=== PATIENT | female | born 1935 | race Caucasian/White ===

== ENCOUNTER 2018-07-02 15:27 | Emergency (ER) | payer MEDICARE, OTHER ==
--- NOTE | 2018-07-02 16:27 | EDM.PDOC ---
ED HPI GENERAL MEDICAL PROBLEM - General Chief Complaint: Genitourinary Problem Stated Complaint: BLADDER INFECTION Time Seen by Provider: 07/02/18 15:35 Source of Information: Reports: Patient, RN Notes Reviewed History Limitations: Reports: No Limitations - History of Present Illness INITIAL COMMENTS - FREE TEXT/NARRATIVE: The patient states that she was seen by Guerline Tovar in the clinic on 06/21/2018, for cold-like symptoms including a sore throat. Workup included a CBC, urinalysis, chest x-ray, rapid strep test, and an influenza swab , all of which returned completely normal. The patient was prescribed a Z-Alfonso, which she took as prescribed, however, she told the provider that whenever she is given an antibiotic, she often gets a yeast infection, therefore she was prescribed 2 tablets of an additional medicine (likely Diflucan). She states that she took one of those tablets on 06/21/2018, and the second tablet on or about 06/24/2018. The patient states that she was doing well up until about 2 days ago, when she started to develop mild dysuria, urinary frequency, and urinary urgency. Her symptoms became much worse yesterday, therefore she started taking Pyridium left over from a previous prescription. She states that the Pyridium helps with her symptoms, however, her symptoms return once the Pyridium wears off. She denies any recent fever or chills. No recent nausea or vomiting. No recent abdominal pain, flank pain, or low back pain. The patient's PCP is Dr. Demi Dobson. Bladder Pain Score (Numeric/FACES): 4 - Related Data Allergies Allergy/AdvReac Type Severity Reaction Status Date / Time Sulfa (Sulfonamide Allergy Swelling Verified 07/02/18 15:36 Antibiotics) Home Meds: Home Meds Cephalexin [Keflex] 1 tab PO Q12H #13 capsule 07/02/18 [Rx] Levothyroxine [Synthroid] 88 mcg PO DAILY 07/02/18 [History] Losartan Potassium 25 mg PO DAILY 07/02/18 [History] Phenytoin Sodium Extended [Dilantin] 100 mg PO BID 07/02/18 [History] Rosuvastatin [Crestor] 10 mg PO BEDTIME 07/02/18 [History] Past Medical History HEENT History: Reports: Cataract, Glaucoma Cardiovascular History: Reports: High Cholesterol, Hypertension Gastrointestinal History: Reports: Colon Polyp, GERD Genitourinary History: Reports: Renal Calculus, Urinary Incontinence (stress iincontinence) Musculoskeletal History: Reports: Arthritis, Back Pain, Chronic, Fracture (left elbow), Gout (suspected, not tested) Neurological History: Reports: Seizure Psychiatric History: Reports: Anxiety, Depression Endocrine/Metabolic History: Reports: Hypothyroidism Oncologic (Cancer) History: Reports: Lymphoma (Mycosis fungoides, in remission) - Past Surgical History GI Surgical History: Reports: Colonoscopy, Other (See Below) (Hemorrhoidectomy) Oncologic Surgical History: Reports: Other (See Below) (Left neck lymph node excision) Social & Family History - Tobacco Use Smoking Status *Q: Current Every Day Smoker Years of Tobacco use: 69 Packs/Tins Daily: 1 Packs/Tins Daily Comment: Down from 1.5 ppd - Caffeine Use Caffeine Use: Reports: Coffee, Soda - Alcohol Use Alcohol Use History: No - Recreational Drug Use Recreational Drug Use: No - Living Situation & Occupation Living situation: Reports: , with Family (Sister) Occupation: Retired ED ROS GENERAL - Review of Systems Review Of Systems: ROS reveals no pertinent complaints other than HPI. ED EXAM, RENAL/ - Physical Exam Exam: See Below Exam Limited By: No Limitations General Appearance: Alert, WD/WN, No Apparent Distress Eye Exam: Bilateral Eye: EOMI, Normal Inspection Ears: Normal External Exam, Hearing Grossly Normal Nose: Normal Inspection Throat/Mouth: Normal Inspection, Normal Lips, Normal Voice, No Airway Compromise Head: Atraumatic, Normocephalic Neck: Normal Inspection, Full Range of Motion Respiratory/Chest: No Respiratory Distress, Lungs Clear, Normal Breath Sounds, No Accessory Muscle Use Cardiovascular: Normal Peripheral Pulses, Regular Rate, Rhythm, No Edema, No Gallop, No JVD, No Murmur, No Rub GI/Abdominal: Normal Bowel Sounds, Soft, Non-Tender (including suprapubically), No Organomegaly, No Distention, No Abnormal Bruit, No Mass (Female) Exam: Deferred Rectal (Female) Exam: Deferred Back Exam: Normal Inspection, Full Range of Motion. No: CVA Tenderness (L), CVA Tenderness (R) Extremities: Normal Inspection, Normal Range of Motion, No Pedal Edema, Normal Capillary Refill Neurological: Alert, Oriented, Normal Cognition, No Motor/Sensory Deficits Psychiatric: Normal Affect Skin Exam: Warm, Dry, Intact, Normal Color, No Rash Course - Vital Signs Last Recorded V/S: Last Vital Signs Temp 36.7 C 07/02/18 15:43 Pulse 73 07/02/18 15:43 Resp 20 07/02/18 15:43 BP 126/75 07/02/18 15:43 Pulse Ox 95 07/02/18 15:43 - Orders/Labs/Meds Orders: Active Orders 24 hr Category Date Time Status CULTURE URINE [RM] Stat Lab 07/02/18 16:29 Ordered cephALEXin [Keflex] Med 07/02/18 16:37 Once 500 mg PO ONETIME ONE Labs: Laboratory Tests 07/02/18 Range/Units 15:55 Urine Color [place] H (Yellow) Urine Appearance Slt cloudy H (Clear) Urine pH 6.0 (5.0-8.0) Ur Specific [place] 1.020 (1.005-1.030) Urine Protein 1+ H (Negative) Urine Glucose (UA) Trace H (Negative) Urine Ketones Negative (Negative) Urine Occult Blood 1+ H (Negative) Urine Nitrite Positive H (Negative) Urine Bilirubin Negative (Negative) Urine Urobilinogen 1.0 (0.2-1.0) Ur Leukocyte Esterase 3+ H (Negative) Urine RBC 10-20 H (0-5) /hpf Urine WBC 50-75 H (0-5) /hpf Urine WBC Clumps Few (NOT SEEN) /hpf Ur Epithelial Cells 5-10 H (0-5) /hpf Urine Bacteria Moderate H (FEW) /hpf Urine Mucus Few (FEW) /hpf - Re-Assessments/Exams Free Text/Narrative Re-Assessment/Exam: 07/02/18 16:37 The patient's urinalysis is consistent with a UTI. I have ordered a urine culture, and will start the patient on Keflex 500 mg BID x 7 days. 07/02/18 16:46 The patient requested additional Pyridium. I informed the patient that while Pyridium can help with UTI symptoms, it is not good for the bladder, therefore one should only take a total of about 6 doses. The patient states that she has already taken 3 or 4 doses of her pre-existing Pyridium. I am recommending that the patient take additional 2 or 3 doses of [id number] Azo. The patient states that she has an appointment to see her PCP this coming 07/04/2018. The urine culture results can be reviewed at that time. Departure - Departure Time of Disposition: 16:47 Disposition: Home, Self-Care 01 Condition: Good Clinical Impression: UTI (urinary tract infection) - Discharge Information *PRESCRIPTION DRUG MONITORING PROGRAM REVIEWED*: Not Applicable *COPY OF PRESCRIPTION DRUG MONITORING REPORT IN PATIENT JOSE: Not Applicable Referrals: Demi Dobson MD [Primary Care Provider] - Forms: ED Department Discharge Additional Instructions: You were seen in the emergency room for painful urination, along with urinary frequency and urgency. Workup in the ER included a urinalysis, which confirmed that you have a urinary tract infection. A sample of your urine has been sent for culture. You have been started on the antibiotic Keflex. A prescription for Keflex has been sent to the [facility], located just south and across the [address] from [facility]. Take one tablet of Keflex every 12 hours, starting tomorrow morning, 07/03/2018, as prescribed. Finish the entire prescription unless told otherwise by Dr. Dobson. In addition to Keflex, you may also take a total of 3 additional doses of over- the-counter Azo. As you are aware, Azo will turn your urine orange - this is normal. Stay adequately hydrated. Follow-up with your PCP, Dr. Demi Dobson, at your previously scheduled appointment this coming 07/04/2018. At that visit, have Dr. Dobson check your urine culture results, to make sure that you are on the correct antibiotic. If any other problems, please do not hesitate to return to the ER. - My Orders Last 24 Hours: My Active Orders 07/02/18 16:29 CULTURE URINE [RM] Stat 07/02/18 16:37 cephALEXin [Keflex] 500 mg PO ONETIME ONE - Assessment/Plan Last 24 Hours: My Active Orders 07/02/18 16:29 CULTURE URINE [RM] Stat 07/02/18 16:37 cephALEXin [Keflex] 500 mg PO ONETIME ONE
[2018-07-02] MEDS ORDERED: Cephalexin 500 MG Cap PO ONE (16:37)
== END 2018-07-02 17:05 | disposition home or self-care (01) ==
LOC: JD.ED 15:27
DX: N39.0 Urinary tract infection, site not specified (principal); B96.20 Unspecified Escherichia coli [E. coli] as the cause of diseases classified elsewhere; E78.00 Pure hypercholesterolemia, unspecified; I10 Essential (primary) hypertension; F17.210 Nicotine dependence, cigarettes, uncomplicated; Z88.2 Allergy status to sulfonamides; Z79.899 Other long term (current) drug therapy
CPT/HCPCS: 81001; 87086; 87088; 87186; 99283; A9270

== ENCOUNTER 2018-12-22 16:25 | Emergency (ER) | payer MEDICARE, OTHER ==
--- NOTE | 2018-12-22 16:59 | EDM.PDOC ---
ED HPI GENERAL MEDICAL PROBLEM - General Chief Complaint: Genitourinary Problem Stated Complaint: UTI Time Seen by Provider: 12/22/18 16:56 - History of Present Illness INITIAL COMMENTS - FREE TEXT/NARRATIVE: 83-year-old female presents emergency room with burning and frequency with urination. Patient is convinced she has a urinary tract infection she's had multiple urinary tract infections. She's had intermittent symptoms for the last week or so getting more consistent over the last several days. She denies any fevers or chills she's tender associated back pain with this. No nausea no vomiting. Bladder Pain Score (Numeric/FACES): 0 - Related Data Allergies Allergy/AdvReac Type Severity Reaction Status Date / Time Sulfa (Sulfonamide Allergy Swelling Verified 07/02/18 15:36 Antibiotics) Home Meds: Home Meds Levothyroxine [Synthroid] 88 mcg PO DAILY 07/02/18 [History] Losartan Potassium 25 mg PO DAILY 07/02/18 [History] Phenytoin Sodium Extended [Dilantin] 100 mg PO BID 07/02/18 [History] Rosuvastatin [Crestor] 10 mg PO BEDTIME 07/02/18 [History] Nitrofurantoin Monohyd/M-Cryst [Macrobid 100 mg Capsule] 100 mg PO Q12H #14 capsule 12/22/18 [Rx] Past Medical History HEENT History: Reports: Cataract, Glaucoma Cardiovascular History: Reports: High Cholesterol, Hypertension Gastrointestinal History: Reports: Colon Polyp, GERD Genitourinary History: Reports: Renal Calculus, Urinary Incontinence Musculoskeletal History: Reports: Arthritis, Back Pain, Chronic, Fracture, Gout Other Musculoskeletal History: ruptured disc and gets injections Neurological History: Reports: Seizure Psychiatric History: Reports: Anxiety, Depression Endocrine/Metabolic History: Reports: Hypothyroidism Oncologic (Cancer) History: Reports: 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 - Past Surgical History GI Surgical History: Reports: Colonoscopy, Other (See Below) Oncologic Surgical History: Reports: Other (See Below) Social & Family History - Tobacco Use Smoking Status *Q: Current Every Day Smoker Years of Tobacco use: 50 Packs/Tins Daily: 1 - Caffeine Use Caffeine Use: Reports: Coffee - Recreational Drug Use Recreational Drug Use: No - Living Situation & Occupation Living situation: Reports: , with Family (Sister) Occupation: Retired ED ROS GENERAL - Review of Systems Review Of Systems: See Below Constitutional: Reports: No Symptoms Respiratory: Reports: No Symptoms, Cough GI/Abdominal: Reports: Abdominal Pain (She has some mild discomfort in the lower abdomen) : Reports: Dysuria, Frequency. Denies: Flank Pain Skin: Reports: No Symptoms Neurological: Reports: No Symptoms Psychiatric: Reports: No Symptoms ED EXAM, GI/ABD - Physical Exam Exam: See Below Exam Limited By: No Limitations General Appearance: Alert, No Apparent Distress Head: Atraumatic, Normocephalic Neck: Normal Inspection, Supple, Non-Tender, Full Range of Motion Respiratory/Chest: No Respiratory Distress, Lungs Clear, Normal Breath Sounds Cardiovascular: Regular Rate, Rhythm, No Edema, No Murmur GI/Abdominal Exam: Normal Bowel Sounds, Soft, Non-Tender Back Exam: Normal Inspection. No: CVA Tenderness (L), CVA Tenderness (R) Extremities: Normal Inspection Neurological: Alert, Oriented, Normal Cognition Course - Vital Signs Last Recorded V/S: Last Vital Signs Temp 36.1 C 12/22/18 16:34 Pulse 79 12/22/18 16:34 Resp 20 12/22/18 16:34 BP 144/75 H 12/22/18 16:34 Pulse Ox 94 L 12/22/18 16:34 - Orders/Labs/Meds Orders: Active Orders 24 hr Category Date Time Status CULTURE URINE [RM] Stat Lab 12/22/18 17:15 Received Labs: Laboratory Tests 12/22/18 Range/Units 17:15 Urine Color Dark yellow (Yellow) Urine Appearance Cloudy H (Clear) Urine pH 7.0 (5.0-8.0) Ur Specific [place] 1.020 (1.005-1.030) Urine Protein 1+ H (Negative) Urine Glucose (UA) Trace H (Negative) Urine Ketones Trace H (Negative) Urine Occult Blood Trace-intact H (Negative) Urine Nitrite Positive H (Negative) Urine Bilirubin Negative (Negative) Urine Urobilinogen 1.0 (0.2-1.0) Ur Leukocyte Esterase 2+ H (Negative) Urine RBC 5-10 H (0-5) /hpf Urine WBC 50-75 H (0-5) /hpf Ur Squamous Epith Cells 0-5 (0-5) /hpf Urine Bacteria Moderate H (FEW) /hpf Hyaline Casts 0-5 (0-5) /lpf Urine Mucus Few (FEW) /hpf - Re-Assessments/Exams Free Text/Narrative Re-Assessment/Exam: 12/22/18 18:02 Patient's urinalysis is strongly suggestive of UTI patient will be started on Macrobid Departure - Departure Time of Disposition: 17:50 Disposition: Home, Self-Care 01 Clinical Impression: UTI (urinary tract infection), UTI, Urinary tract infectious disease - Discharge Information Prescriptions: Nitrofurantoin Monohyd/M-Cryst [Macrobid 100 mg Capsule] 100 mg PO Q12H #14 capsule Referrals: Demi Dobson MD [Primary Care Provider] - Forms: ED Department Discharge Additional Instructions: Return to the emergency room with any questions or problems. Take the antibiotic as directed. Follow-up with your regular health care provider 3 days after finishing the antibiotics. - My Orders Last 24 Hours: My Active Orders 12/22/18 17:15 CULTURE URINE [RM] Stat - Assessment/Plan Last 24 Hours: My Active Orders 12/22/18 17:15 CULTURE URINE [RM] Stat
== END 2018-12-22 18:04 | disposition home or self-care (01) ==
LOC: JD.ED 16:25
DX: N39.0 Urinary tract infection, site not specified (principal); I10 Essential (primary) hypertension; E78.00 Pure hypercholesterolemia, unspecified; E03.9 Hypothyroidism, unspecified; F17.200 Nicotine dependence, unspecified, uncomplicated; Z88.2 Allergy status to sulfonamides; Z79.899 Other long term (current) drug therapy; Z79.890 Hormone replacement therapy
CPT/HCPCS: 81001; 87086; 87088; 87186; 99283

== ENCOUNTER 2019-03-12 18:28 | Emergency (ER) | payer MEDICARE, OTHER ==
[2019-03-12] MEDS ORDERED: Sodium Chloride 0.9% 10 ML Syringe FLUSH PRN (18:52)
[2019-03-12] MEDS ORDERED: LORazepam 2 MG/ML SDV IVPUSH ONE (18:54)
[2019-03-12] MEDS ORDERED: Ondansetron 4 MG/2 ML SDV IVPUSH ONE (18:54)
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
--- NOTE | 2019-03-12 20:41 | CR ---
Chest: 2 views of the chest are obtained. Comparison: Prior chest x-ray of 06/21/18. Heart is felt to be slightly enlarged. Tortuous thoracic aorta is seen. Mild upper lobe pulmonary vascular redistribution is noted. Mild scoliosis is noted within the spine with mild degenerative change and mild kyphosis. Impression: 1. Possible early CHF. 2. Other findings which are believed to be incidental. Diagnostic code #3 This report was dictated in [place] Standard Time
== END 2019-03-12 21:42 | disposition home or self-care (01) ==
LOC: JD.ED 18:28
DX: F41.9 Anxiety disorder, unspecified (principal); I10 Essential (primary) hypertension; E03.9 Hypothyroidism, unspecified; E78.00 Pure hypercholesterolemia, unspecified; F17.210 Nicotine dependence, cigarettes, uncomplicated; Z88.2 Allergy status to sulfonamides; Z79.890 Hormone replacement therapy; Z79.899 Other long term (current) drug therapy
CPT/HCPCS: 36415; 71046; 80053; 80185; 81003; 84443; 84484; 85025; 93005; 96374; 96375; 99285; G0480; J2060; J2405; 93010; 99283

== ENCOUNTER 2019-04-30 14:18 | Emergency (ER) | payer MEDICARE, OTHER ==
--- NOTE | 2019-04-30 15:53 | EDM.PDOCBH ---
ED HPI GENERAL MEDICAL PROBLEM - General Chief Complaint: Behavioral/Psych Stated Complaint: PANIC ATTACK Time Seen by Provider: 04/30/19 14:35 Source of Information: Reports: Patient History Limitations: Reports: No Limitations - History of Present Illness INITIAL COMMENTS - FREE TEXT/NARRATIVE: Patient is an 83-year-old female who presents with complaints of anxiety and panic attacks. She states that numerous times throughout the day she will get feelings of increased anxiety like "something is wrong with her brain ". She states that these started occurring back in January and have getting progressively worse. At that time she thought that they have may have been some auras associated with her seizure disorder. She was taking additional doses of Dilantin and ended up with toxic levels of Dilantin. She has been taking her normal dose of Dilantin 300 mg twice daily since that time. She did see her neurologist at the beginning of the month and it was confirmed that these are not auras but rather anxiety. Patient does have a son with Asperger' s who is mean to her and causes her increased anxiety. He will call her on the phone and see that he is going to kill himself. She recently saw her primary care provider, Dr. Dobson, on 12 April. Lab work was done at that time and was found to be normal. Her Zoloft dose was increased to 50 mg daily on April 24. She is also taking trazodone 50 mg at bedtime. She states that she is able to fall asleep, however she only stays asleep for about 2 hours and then cannot go back to sleep after that. - Related Data Allergies Allergy/AdvReac Type Severity Reaction Status Date / Time Sulfa (Sulfonamide Allergy Swelling Verified 03/12/19 18:44 Antibiotics) Home Meds: Home Meds Levothyroxine [Synthroid] 88 mcg PO DAILY 07/02/18 [History] Losartan Potassium 25 mg PO DAILY 07/02/18 [History] Phenytoin Sodium Extended [Dilantin] 300 mg PO BID 07/02/18 [History] Rosuvastatin [Crestor] 10 mg PO BEDTIME 07/02/18 [History] Aspirin 81 mg PO DAILY 04/30/19 [History] B12/Levomefolate Calcium/B-6 [Folbic Rf Tablet] 1 mg PO DAILY 04/30/19 [History] Iron,Carbonyl/Ascorbic Acid [Iron 100-Vitamin C Tablet] 1 mg PO DAILY 04/30/19 [ History] LORazepam [Ativan] 0.5 mg PO BID PRN #15 tablet 04/30/19 [Rx] Mirtazapine [Remeron] 15 mg PO BEDTIME #30 tab 04/30/19 [Rx] traZODone HCl [Trazodone HCl] 50 mg PO BEDTIME 04/30/19 [History] Past Medical History HEENT History: Reports: Cataract, Glaucoma Cardiovascular History: Reports: High Cholesterol, Hypertension Respiratory History: Reports: None Gastrointestinal History: Reports: Colon Polyp, GERD Genitourinary History: Reports: Renal Calculus, Urinary Incontinence 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: Musculoskeletal History: Reports: Arthritis, Back Pain, Chronic, Fracture, Gout Other Musculoskeletal History: ruptured disc and gets injections Neurological History: Reports: Seizure Psychiatric History: Reports: Anxiety, Depression Endocrine/Metabolic History: Reports: Hypothyroidism Hematologic History: Reports: None Immunologic History: Reports: None Oncologic (Cancer) History: Reports: 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 Dermatologic History: Reports: None - Infectious Disease History Infectious Disease History: Reports: None - Past Surgical History GI Surgical History: Reports: Colonoscopy, Other (See Below) Oncologic Surgical History: Reports: Other (See Below) Social & Family History - Tobacco Use Smoking Status *Q: Current Every Day Smoker Years of Tobacco use: 60 Packs/Tins Daily: 1 - Caffeine Use Caffeine Use: Reports: Coffee - Recreational Drug Use Recreational Drug Use: No - Living Situation & Occupation Living situation: Reports: , with Family (Sister) Occupation: Retired ED ROS GENERAL - Review of Systems Review Of Systems: Comprehensive ROS is negative, except as noted in HPI. ED EXAM, BEHAVIORAL HEALTH - Physical Exam Exam: See Below Exam Limited By: No Limitations General Appearance: Alert, WD/WN, Mild Distress (Occasionally tearful) Respiratory/Chest: No Respiratory Distress, Lungs Clear, Normal Breath Sounds, No Accessory Muscle Use, Chest Non-Tender Cardiovascular: Normal Peripheral Pulses, Regular Rate, Rhythm, No Edema, No Gallop, No JVD, No Murmur, No Rub Neurological: Alert, Normal Mood/Affect, CN II-XII Intact, Normal Cognition, Normal Gait, Normal Reflexes, No Motor/Sensory Deficits, Oriented x 3 Psychiatric: Alert, Normal Affect, Normal Cognition, Oriented, Tearful ( Intermittently). No: Restless, Withdrawn, Homicidal Thoughts, Suicidal Plan, Suicidal Thoughts Skin Exam: Warm, Dry, Intact, Normal color, No rash COURSE, BEHAVIORAL HEALTH COMP - Course Vital Signs: Last Vital Signs Temp 98.3 F 04/30/19 14:31 Pulse 84 04/30/19 14:31 Resp 16 04/30/19 14:31 BP 140/112 H 04/30/19 14:31 Pulse Ox 100 04/30/19 14:31 Orders, Labs, Meds: Active Orders 24 hr Category Date Time Status Influenza Vaccine Charge [RC] .DISCHARGE Care 04/30/19 14:53 Active Laboratory Tests 04/30/19 04/30/19 04/30/19 Range/Units 15:50 15:50 15:50 WBC 9.11 (3.98-10.04) K/mm3 RBC 5.12 (3.98-5.22) M/mm3 Hgb 15.3 (11.2-15.7) gm/dl Hct 46.4 H (34.1-44.9) % MCV 90.6 (79.4-94.8) fl MCH 29.9 (25.6-32.2) pg MCHC 33.0 (32.2-35.5) g/dl RDW Std Deviation 61.2 H (36.4-46.3) fL Plt Count 246 (182-369) K/mm3 MPV 10.2 (9.4-12.3) fl Neut % (Auto) 72.6 H (34.0-71.1) % Lymph % (Auto) 13.2 L (19.3-51.7) % [place] % (Auto) 13.1 H (4.7-12.5) % Eos % (Auto) 0.8 (0.7-5.8) Baso % (Auto) 0.2 (0.1-1.2) % Neut # (Auto) 6.62 H (1.56-6.13) K/mm3 Lymph # (Auto) 1.20 (1.18-3.74) K/mm3 [place] # (Auto) 1.19 H (0.24-0.36) K/mm3 Eos # (Auto) 0.07 (0.04-0.36) K/mm3 Baso # (Auto) 0.02 (0.01-0.08) K/mm3 Sodium 143 (136-145) mEq/L Potassium 3.4 L (3.5-5.1) mEq/L Chloride 105 (98-107) mEq/L Carbon Dioxide 26 (21-32) mEq/L Anion Gap 15.4 H (5-15) BUN 13 (7-18) mg/dL Creatinine 0.8 (0.55-1.02) mg/dL Est Cr Clr Drug Dosing 37.60 mL/min Estimated GFR (MDRD) > 60 (>60) mL/min BUN/Creatinine Ratio 16.3 (14-18) Glucose 145 H (83-115) mg/dL Calcium 10.3 H (8.5-10.1) mg/dL Iron 62 (50-170) ug/dL Ferritin 62 (8-252) ng/ml Total Bilirubin 0.2 (0.2-1.0) mg/dL AST 18 (15-37) U/L ALT 29 (14-59) U/L Alkaline Phosphatase 89 (46-116) U/L Total Protein 6.7 (6.4-8.2) g/dl Albumin 3.9 (3.4-5.0) g/dl Globulin 2.8 gm/dL Albumin/Globulin Ratio 1.4 (1-2) Phenytoin 12.2 (10.0-20.0) ug/mL Medications Discontinued Medications Generic Name Dose Route Start Last Admin Trade Name Freq PRN Reason Stop Dose Admin Influenza Virus Vaccine 180 mcg 04/30/19 15:00 04/30/19 15:41 Fluzone High-Dose Syringe IM 04/30/19 15:01 Not Given .ONCE ONE Pain Departure - Departure Time of Disposition: 17:35 Disposition: Home, Self-Care 01 Condition: Fair Clinical Impression: Anxiety - Discharge Information *PRESCRIPTION DRUG MONITORING PROGRAM REVIEWED*: No *COPY OF PRESCRIPTION DRUG MONITORING REPORT IN PATIENT JOSE: No Prescriptions: LORazepam [Ativan] 0.5 mg PO BID PRN #15 tablet PRN Reason: Anxiety Mirtazapine [Remeron] 15 mg PO BEDTIME #30 tab Instructions: Panic Attack, [id number] Referrals: Demi Dobson MD [Primary Care Provider] - Billy Love MD [Physician] - Forms: ED Department Discharge Additional Instructions: You were seen in the emergency department today for increased anxiety and panic attacks. Blood work was completed and your iron was found to be normal. Your Dilantin levels are also normal. We consulted with Dr. Love, psychiatrist. He recommended that we stop your sertraline and trazodone as these medications are not working. He would like you to start taking mirtazapine at bedtime. He would also like you to use Ativan (lorazepam) 2 times a day as needed for anxiety or panic attacks. You do not have to take the Ativan (lorazepam) if you are not feeling anxious. These medications have been sent electronically to [facility]. Dr. Love would like you to call and schedule an appointment with him next Tuesday at his virtual psychiatry clinic. Please call first thing tomorrow morning to schedule an appointment for that date. The phone number to call is [phone]. It is also recommended that you keep your appointment on with Dr. Dobson for a follow-up. If you should should experience any worsening symptoms of concern, please not hesitate to return to the emergency department. Sepsis Event Note - Evaluation Sepsis Screening Result: No Definite Risk - Focused Exam Vital Signs: Vital Signs Temp Pulse Resp BP Pulse Ox 04/30/19 14:31 98.3 F 84 16 140/112 H 100 Date Exam was Performed: 04/30/19 Time Exam was Performed: 22:19 - My Orders Last 24 Hours: My Active Orders 04/30/19 14:53 Influenza Vaccine Charge [RC] .DISCHARGE - Assessment/Plan Last 24 Hours: My Active Orders 04/30/19 14:53 Influenza Vaccine Charge [RC] .DISCHARGE
== END 2019-04-30 18:00 | disposition home or self-care (01) ==
LOC: JD.ED 14:18
DX: F41.9 Anxiety disorder, unspecified (principal); E78.00 Pure hypercholesterolemia, unspecified; I10 Essential (primary) hypertension; F17.210 Nicotine dependence, cigarettes, uncomplicated; M19.90 Unspecified osteoarthritis, unspecified site; F32.9 Major depressive disorder, single episode, unspecified; Z88.2 Allergy status to sulfonamides
CPT/HCPCS: 36415; 80053; 80185; 82728; 83540; 85025; 99283

== ENCOUNTER 2020-03-07 15:29 | Emergency (ER) | payer MEDICARE, OTHER ==
[2020-03-07] MEDS ORDERED: Sodium Chloride 0.9% 10 ML Syringe FLUSH PRN (15:54)
--- NOTE | 2020-03-07 16:38 | EDM.PDOC ---
ED HPI GENERAL MEDICAL PROBLEM - General Chief Complaint: General Stated Complaint: WEAKNESS/FATIGUE Time Seen by Provider: 03/07/20 15:36 Source of Information: Reports: Patient, RN Notes Reviewed - History of Present Illness INITIAL COMMENTS - FREE TEXT/NARRATIVE: 84 yr old female with generalized weakness, fatigue that has been getting worse over the past 1 to 2 months. Had Ua and other labs checked at clinic just a few days ago. No chest pain or difficulty breathing. Very poor appetite. Thinks she has lost about 10 lbs over the past 2 to 3 months. Hx of being a heavy smoker and does continue to smoke. - Related Data Allergies Allergy/AdvReac Type Severity Reaction Status Date / Time Sulfa (Sulfonamide Allergy Swelling Verified 03/12/19 18:44 Antibiotics) Home Meds: Home Meds Levothyroxine [Synthroid] 88 mcg PO DAILY 07/02/18 [History] Losartan Potassium 25 mg PO DAILY 07/02/18 [History] Phenytoin Sodium Extended [Dilantin] 300 mg PO BID 07/02/18 [History] Rosuvastatin [Crestor] 10 mg PO BEDTIME 07/02/18 [History] Aspirin 81 mg PO DAILY 04/30/19 [History] B12/Levomefolate Calcium/B-6 [Folbic Rf Tablet] 1 mg PO DAILY 04/30/19 [History] Iron,Carbonyl/Ascorbic Acid [Iron 100-Vitamin C Tablet] 1 mg PO DAILY 04/30/19 [History] LORazepam [Ativan] 0.5 mg PO BID PRN #15 tablet 04/30/19 [Rx] Mirtazapine [Remeron] 15 mg PO BEDTIME #30 tab 04/30/19 [Rx] traZODone HCl [Trazodone HCl] 50 mg PO BEDTIME 04/30/19 [History] Past Medical History HEENT History: Reports: Cataract, Glaucoma Cardiovascular History: Reports: High Cholesterol, Hypertension Respiratory History: Reports: None Gastrointestinal History: Reports: Colon Polyp, GERD Genitourinary History: Reports: Renal Calculus, Urinary Incontinence, UTI, Recurrent 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: Musculoskeletal History: Reports: Arthritis, Back Pain, Chronic, Fracture, Gout Other Musculoskeletal History: ruptured disc and gets injections Neurological History: Reports: Seizure Psychiatric History: Reports: Anxiety, Depression Endocrine/Metabolic History: Reports: Hypothyroidism Hematologic History: Reports: None Immunologic History: Reports: None Oncologic (Cancer) History: Reports: 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 Dermatologic History: Reports: None - Infectious Disease History Infectious Disease History: Reports: None - Past Surgical History GI Surgical History: Reports: Colonoscopy, Other (See Below) Other GI Surgeries/Procedures: hemmoroidectomy Oncologic Surgical History: Reports: Other (See Below) Social & Family History - Tobacco Use Tobacco Use Status *Q: Current Every Day Tobacco User Years of Tobacco use: 70 Packs/Tins Daily: 1 - Caffeine Use Caffeine Use: Reports: Coffee - Recreational Drug Use Recreational Drug Use: No - Living Situation & Occupation Living situation: Reports: , with Family (Sister) Occupation: Retired ED ROS GENERAL - Review of Systems Review Of Systems: See Below Constitutional: Denies: Fever, Chills, Diaphoresis HEENT: Reports: No Symptoms Respiratory: Reports: Cough (chronic). Denies: Shortness of Breath Cardiovascular: Denies: Chest Pain Endocrine: Reports: Fatigue GI/Abdominal: Reports: Diarrhea (occasional mild), Decreased Appetite, Nausea. Denies: Abdominal Pain, Vomiting Musculoskeletal: Reports: Back Pain (chronic) Skin: Reports: No Symptoms Neurological: Denies: Numbness, Tingling, Trouble Speaking, Difficulty Walking ED EXAM, GENERAL - Physical Exam Exam: See Below General Appearance: Alert, Anxious Eye Exam: Bilateral Eye: PERRL Head: Atraumatic Neck: Supple Respiratory/Chest: No Respiratory Distress, Lungs Clear, Normal Breath Sounds. No: Rhonchi, Wheezing Cardiovascular: Regular Rate, Rhythm GI/Abdominal: Soft, Non-Tender. No: Guarding Extremities: Normal Inspection. No: Pedal Edema, Leg Pain Neurological: Alert, Oriented, No Motor/Sensory Deficits Skin Exam: Warm, Dry, Normal Color #1 Interpretation EKG Date: 03/07/20 Rhythm: NSR [place]: Normal P-Wave: Present QRS: Normal ST-T: Other (mild nonspecific t wave changes) Course - Vital Signs Last Recorded V/S: Last Vital Signs Temp 97.1 F 03/07/20 15:35 Pulse 68 03/07/20 15:35 Resp 12 03/07/20 15:35 BP 174/82 H 03/07/20 15:35 Pulse Ox 95 03/07/20 15:35 - Orders/Labs/Meds Orders: Active Orders 24 hr Category Date Time Status Chest 1V Frontal [CR] Stat Exams 03/07/20 16:38 Taken PHENYTOIN [REF] Stat Lab 03/07/20 16:00 Received Sodium Chloride 0.9% [Saline Flush] Med 03/07/20 15:54 Active 10 ml FLUSH ASDIRECTED PRN Peripheral IV Insertion Adult [OM.PC] Stat Oth 03/07/20 15:54 Ordered Medication Orders Sodium Chloride (Saline Flush) 10 ml FLUSH ASDIRECTED PRN PRN Reason: Keep Vein Open Last Admin: 03/07/20 16:04 Dose: 10 ml Documented by: MARY LOU Labs: Laboratory Tests 03/07/20 03/07/20 03/07/20 Range/Units 16:00 16:00 16:00 WBC 8.20 (3.98-10.04) K/mm3 RBC 4.72 (3.98-5.22) M/mm3 Hgb 14.6 (11.2-15.7) gm/dl Hct 44.2 (34.1-44.9) % MCV 93.6 (79.4-94.8) fl MCH 30.9 (25.6-32.2) pg MCHC 33.0 (32.2-35.5) g/dl RDW Std Deviation 45.7 (36.4-46.3) fL Plt Count 231 (182-369) K/mm3 MPV 10.3 (9.4-12.3) fl Neut % (Auto) 62.2 (34.0-71.1) % Lymph % (Auto) 22.4 (19.3-51.7) % [place] % (Auto) 13.2 H (4.7-12.5) % Eos % (Auto) 1.7 (0.7-5.8) Baso % (Auto) 0.4 (0.1-1.2) % Neut # (Auto) 5.10 (1.56-6.13) K/mm3 Lymph # (Auto) 1.84 (1.18-3.74) K/mm3 [place] # (Auto) 1.08 H (0.24-0.36) K/mm3 Eos # (Auto) 0.14 (0.04-0.36) K/mm3 Baso # (Auto) 0.03 (0.01-0.08) K/mm3 Sodium 139 (136-145) mEq/L Potassium 3.9 (3.5-5.1) mEq/L Chloride 105 (98-107) mEq/L Carbon Dioxide 29 (21-32) mEq/L Anion Gap 8.9 (5-15) BUN 9 (7-18) mg/dL Creatinine 0.8 (0.55-1.02) mg/dL Est Cr Clr Drug Dosing 38.80 mL/min Estimated GFR (MDRD) > 60 (>60) mL/min BUN/Creatinine Ratio 11.3 L (14-18) Glucose 95 (83-115) mg/dL Calcium 10.3 H (8.5-10.1) mg/dL Total Bilirubin 0.2 (0.2-1.0) mg/dL AST 16 (15-37) U/L ALT 19 (14-59) U/L Alkaline Phosphatase 112 (46-116) U/L Troponin I < 0.017 (0.00-0.056) ng/mL C-Reactive Protein 0.5 (<1.0) mg/dL Total Protein 6.7 (6.4-8.2) g/dl Albumin 3.8 (3.4-5.0) g/dl Globulin 2.9 gm/dL Albumin/Globulin Ratio 1.3 (1-2) TSH 3rd Generation 1.816 (0.358-3.74) uIU/mL Meds: Medications Generic Name Dose Route Start Last Admin Trade Name Freq PRN Reason Stop Dose Admin Sodium Chloride 10 ml 03/07/20 15:54 03/07/20 16:04 Saline Flush FLUSH 10 ml ASDIRECTED PRN Administration Keep Vein Open - Re-Assessments/Exams Free Text/Narrative Re-Assessment/Exam: 03/07/20 18:36 Labs, EKG, CXR all relatively nl including trop and tsh. Do not have an explanation for her decreased appetite, wt loss at this time. Did not recheck a urine as she just had a urine checked a few days ago, culture was neg. She became extremely anxious waiting for her labs to come back, demanding to be able to leave imediately. Somewhat inappropriate anxiety, needs to go smoke?, early dementia? Discharge isntr. as documented. Departure - Departure Time of Disposition: 17:55 Disposition: Home, Self-Care 01 Condition: Fair Clinical Impression: Anorexia - Discharge Information Instructions: Preventing Complications From Unhealthy Eating Behaviors, Adult Referrals: Demi Dobson MD [Primary Care Provider] - Forms: ED Department Discharge Additional Instructions: You may be getting too much dilantin, do not take your dilantin this evening and than cut back your dosage to 1 in the morning and 1 in the evening until results of your dilantin level come back. Dr Dobson will get all of the information from this visit. Try see Dr Dobson next week. Call Tuesday for appointment. Sepsis Event Note (ED) - Evaluation Sepsis Screening Result: No Definite Risk - Focused Exam Vital Signs: Vital Signs Temp Pulse Resp BP Pulse Ox 03/07/20 15:35 97.1 F 68 12 174/82 H 95 - My Orders Last 24 Hours: My Active Orders 03/07/20 15:54 Sodium Chloride 0.9% [Saline Flush] 10 ml FLUSH ASDIRECTED PRN Peripheral IV Insertion Adult [OM.PC] Stat 03/07/20 16:00 PHENYTOIN [REF] Stat 03/07/20 16:38 Chest 1V Frontal [CR] Stat - Assessment/Plan Last 24 Hours: My Active Orders 03/07/20 15:54 Sodium Chloride 0.9% [Saline Flush] 10 ml FLUSH ASDIRECTED PRN Peripheral IV Insertion Adult [OM.PC] Stat 03/07/20 16:00 PHENYTOIN [REF] Stat 03/07/20 16:38 Chest 1V Frontal [CR] Stat
--- NOTE | 2020-03-07 18:42 | CR ---
Chest: Portable view of the chest was obtained. Comparison: Prior chest x-ray of 03/12/19 and 06/21/18. Findings: Heart size appears within normal limits for portable technique. Tortuous thoracic aorta is seen. Lungs are clear with no acute parenchymal change. Slight scoliosis is noted within the spine. Impression: 1. Nothing acute is seen on portable chest x-ray. Diagnostic code #1
== END 2020-03-07 18:14 | disposition home or self-care (01) ==
LOC: JD.ED 15:29
DX: R63.0 Anorexia (principal); E78.00 Pure hypercholesterolemia, unspecified; I10 Essential (primary) hypertension; M10.9 Gout, unspecified; F41.9 Anxiety disorder, unspecified; F32.9 Major depressive disorder, single episode, unspecified; E03.9 Hypothyroidism, unspecified; F17.210 Nicotine dependence, cigarettes, uncomplicated; Z88.2 Allergy status to sulfonamides; Z79.82 Long term (current) use of aspirin; Z79.899 Other long term (current) drug therapy
CPT/HCPCS: 36415; 71045; 71045-26; 80053; 80185; 84443; 84484; 85025; 86140; 93005; 93010; 99283; 99285-25

== ENCOUNTER 2020-03-27 18:52 | Emergency (ER) | payer MEDICARE, OTHER ==
--- NOTE | 2020-03-27 19:38 | EDM.PDOC ---
ED HPI GENERAL MEDICAL PROBLEM - General Chief Complaint: Head Injury Stated Complaint: [facility] Time Seen by Provider: 03/27/20 19:05 Source of Information: Reports: Patient, Family (Sister) History Limitations: Reports: Altered Mental Status (Patient confused, likely demented) - History of Present Illness INITIAL COMMENTS - FREE TEXT/NARRATIVE: Mrs. Acevedo is a pleasant 84-year-old woman who is now brought to the ED by EMS after she fell backwards at home, striking the back of her head against a large vase, shattering it and sustaining a laceration to her posterior right scalp. There was no loss of consciousness. The patient takes 3 baby aspirin per week, but is not otherwise on an anticoagulant. She denies having pain or injury other than to the back of her head. The patient has a history of seizure disorder, although her sister, who is at the bedside, and with whom the patient lives and witnessed the fall, denied that the patient suffered a seizure. The patient is confused, likely due to dementia, and the patient's sister tells me that the patient is currently at her cognitive baseline. No vomiting since the fall. Here in the ED, the patient's initial BP is found to be modestly elevated at 162/92, otherwise, she is hemodynamically stable, afebrile, saturating 90% on room air. The patient's sister tells me that the patient is being worked up for confusion and insomnia by her PCP. Otherwise, the patient's sister denies that the patient has had a recent fever, chills, sore throat, ear pain, nasal or sinus congestion, cough, dyspnea, chest pain, palpitations, nausea, vomiting, constipation, diarrhea, abdominal pain, urinary symptoms, recent weight gain or weight loss, recent bloody bowel movements or black bowel movements, recent joint aches, headaches, or rashes. The patient's PCP is Dr. Demi Dobson. Her Psychiatrist is Dr. Billy Love. She already received an influenza vaccine this season. - Related Data Allergies Allergy/AdvReac Type Severity Reaction Status Date / Time Sulfa (Sulfonamide Allergy Severe Swelling Verified 03/27/20 18:59 Antibiotics) Home Meds: Home Meds Levothyroxine [Synthroid] 88 mcg PO DAILY 07/02/18 [History] Losartan Potassium 25 mg PO DAILY 07/02/18 [History] Phenytoin Sodium Extended [Dilantin] 300 mg PO BID 07/02/18 [History] Rosuvastatin [Crestor] 10 mg PO BEDTIME 07/02/18 [History] Aspirin 81 mg PO DAILY 04/30/19 [History] B12/Levomefolate Calcium/B-6 [Folbic Rf Tablet] 1 mg PO DAILY 04/30/19 [History] Iron,Carbonyl/Ascorbic Acid [Iron 100-Vitamin C Tablet] 1 mg PO DAILY 04/30/19 [History] LORazepam [Ativan] 0.5 mg PO BID PRN #15 tablet 04/30/19 [Rx] Mirtazapine [Remeron] 15 mg PO BEDTIME #30 tab 04/30/19 [Rx] traZODone HCl [Trazodone HCl] 50 mg PO BEDTIME 04/30/19 [History] Past Medical History HEENT History: Reports: Glaucoma Cardiovascular History: Reports: High Cholesterol, Hypertension Gastrointestinal History: Reports: Colon Polyp, GERD Genitourinary History: Reports: Renal Calculus, Urinary Incontinence (stress incontinence) Musculoskeletal History: Reports: Arthritis, Fracture (left elbow), Gout (suspected, not confirmed) Neurological History: Reports: Seizure Psychiatric History: Reports: Anxiety, Depression Endocrine/Metabolic History: Reports: Hypothyroidism Oncologic (Cancer) History: Reports: Lymphoma (mycosis fungoides, in remission) - Past Surgical History GI Surgical History: Reports: Colonoscopy (x 1), Other (See Below) (Hemorrhoidectomy) Oncologic Surgical History: Reports: Other (See Below) (Left neck lymph node excision) Social & Family History - Tobacco Use Tobacco Use Status *Q: Current Every Day Tobacco User Years of Tobacco use: 70 Packs/Tins Daily: 1 Packs/Tins Daily Comment: Down from 1.5 ppd - Caffeine Use Caffeine Use: Reports: Coffee - Alcohol Use Alcohol Use History: No - Recreational Drug Use Recreational Drug Use: No - Living Situation & Occupation Living situation: Reports: , with Family (Sister) Occupation: Retired ED ROS GENERAL - Review of Systems Review Of Systems: Comprehensive ROS is negative, except as noted in HPI. ED EXAM, HEAD INJURY - Physical Exam Exam: See Below Exam Limited By: No Limitations General Appearance: Alert, WD/WN, No Apparent Distress Head: Normocephalic, Scalp Lacerations (3.0 cm linear, with minimal bleeding, right posterior), Scalp Hematoma (right posterior) Eyes: Bilateral Eye: EOMI, Normal Inspection, PERRL Ears: Normal External Exam, Normal Canal, Normal TMs, Hearing Loss Nose: Normal Inspection, Normal Mucousa, No Blood Throat/Mouth: Normal Inspection, Normal Lips, Normal Teeth, Normal Gums, Normal Oropharynx, Normal Voice, No Airway Compromise Neck: Non-Tender, Full Range of Motion, Normal Alignment, Normal Inspection Respiratory: No Respiratory Distress, Lungs Clear, Normal Breath Sounds, No Accessory Muscle Use Cardiovascular: Normal Peripheral Pulses, Regular Rate, Rhythm, No Gallop, No JVD, No Murmur, No Rub GI/Abdominal Exam: Normal Bowel Sounds, Soft, Non-Tender, No Organomegaly, No Distention, No Abnormal Bruit, No Mass Back Exam: Full Range of Motion, Normal Inspection, NT Extremities: Normal Inspection, Normal Range of Motion, Normal Capillary Refill Neurologic: cupola liner helper II-XII nml As Tested, No Motor/Sensory Deficits, Alert, Other (Confused, but at cognitive baseline, per her sister,at the bedside) Skin: Normal Color, Warm/Dry Course - Vital Signs Last Recorded V/S: Last Vital Signs Temp 36.4 C 03/27/20 18:56 Pulse 78 03/27/20 18:56 Resp 14 03/27/20 18:56 BP 162/92 H 03/27/20 18:56 Pulse Ox 90 L 03/27/20 18:56 - Re-Assessments/Exams Free Text/Narrative Re-Assessment/Exam: 03/27/20 19:33 Although the patient is confused, likely because of dementia, her sister tells me that she is at her cognitive baseline. There is no suggestion of a open or depressed skull fracture, no sign of a basal skull fracture. No posttraumatic seizure. No focal neurologic deficits. No vomiting since she fell. She is not on an anticoagulant, and there was no loss of consciousness from the fall. Because of these, an emergency CT of the head without contrast is not indicated at this time. I placed 4 ciera across the patient's right posterior scalp laceration. The patient tolerated the procedure well. I explained to the patient's sister that because she smokes, it will take longer to heal than if she did not smoke; the ciera should be ready for removal on 04/07/2020. Departure - Departure Time of Disposition: 19:35 Disposition: Home, Self-Care 01 Condition: Good Clinical Impression: Occipital scalp laceration, Fall at home - Discharge Information *PRESCRIPTION DRUG MONITORING PROGRAM REVIEWED*: Not Applicable *COPY OF PRESCRIPTION DRUG MONITORING REPORT IN PATIENT JOSE: Not Applicable Instructions: Laceration Care, Adult, [id number] Referrals: Demi Dobson MD [Primary Care Provider] - Billy Love MD [Physician] - Forms: ED Department Discharge Additional Instructions: Silva was seen in the emergency room after falling backwards at home, cutting the back of her scalp. 4 ciera were placed across the wound in the ER. She may take [id number] Tylenol or ibuprofen as needed for discomfort. Keep the wound clean with ordinary shampoo and water when she bathes. She should not soak the wound, such as in the bathtub or swimming pool. No product, such as hairspray, lotions, or colors should be put into her hair until the wound has completely healed. The ciera should be ready for removal on 04/07/2020. They can be removed at the walk-in clinic, by a nurse at Dr. Dobson's office, or in the ER. If any other problems, please do not hesitate to return Silva to the ER. Sepsis Event Note (ED) - Evaluation Sepsis Screening Result: No Definite Risk - Focused Exam Vital Signs: Vital Signs Temp Pulse Resp BP Pulse Ox 03/27/20 18:56 36.4 C 78 14 162/92 H 90 L
== END 2020-03-27 19:50 | disposition home or self-care (01) ==
LOC: JD.ED 18:52
DX: S01.01XA Laceration without foreign body of scalp, initial encounter (principal); E78.00 Pure hypercholesterolemia, unspecified; I10 Essential (primary) hypertension; M19.90 Unspecified osteoarthritis, unspecified site; R56.9 Unspecified convulsions; F41.9 Anxiety disorder, unspecified; F32.9 Major depressive disorder, single episode, unspecified; F17.210 Nicotine dependence, cigarettes, uncomplicated; E03.9 Hypothyroidism, unspecified; Z88.2 Allergy status to sulfonamides; Z79.82 Long term (current) use of aspirin; Z79.899 Other long term (current) drug therapy; W22.8XXA Striking against or struck by other objects, initial encounter; Y92.009 Unspecified place in unspecified non-institutional (private) residence as the place of occurrence of the external cause
CPT/HCPCS: 12002; 99283; 99283-25

== ENCOUNTER 2020-04-19 08:48 | Emergency (ER) | payer MEDICARE, OTHER ==
[2020-04-19] MEDS ORDERED: HYDROmorphone 0.5 MG/0.5 ML Syringe IVPUSH ONE ×2 (08:54→11:06)
[2020-04-19] MEDS ORDERED: Ondansetron 4 MG/2 ML SDV IVPUSH ONE (08:55)
--- NOTE | 2020-04-19 08:59 | EDM.PDOC ---
ED HPI GENERAL MEDICAL PROBLEM - General Chief Complaint: Cardiovascular Problem Stated Complaint: [facility] Time Seen by Provider: 04/19/20 08:50 Source of Information: Reports: Patient, EMS History Limitations: Reports: No Limitations - History of Present Illness INITIAL COMMENTS - FREE TEXT/NARRATIVE: 84-year-old female presents to the ED per [facility] complaining of diffuse right-sided chest pain primarily anteriorily but also felt on her right back inferior to the scapula. Pain started before bed last night and seems more intense this morning. It has a strong pleuritic component to the pain made worse by trying to breathe deeply. It is difficult to take a deep breath. She seems to build make the pain worse by pushing underneath her breast on the right chest wall. No recent falls or injuries. Mild nonproductive cough. No history of COVID-19 illness. No fever or chills. No sputum production. No recent changes to any of her medications. Patient is a known smoker of a pack of cigarettes daily and has at least a [id number] history. To her knowledge she has no coronary disease problems. Onset: Today, Sudden Duration: Hour(s):, Getting Worse Location: Reports: Chest (Right anterior chest pain.) Quality: Reports: Ache, Sharp, Stabbing Severity: Moderate Improves with: Reports: Rest Worsens with: Reports: Other (With coughing and deep breathing) Context: Reports: Other (Spontaneous occurrence this morning). Denies: Activity, Exercise, Lifting, Sick Contact, Trauma Associated Symptoms: Reports: Chest Pain, Cough, Loss of Appetite, Malaise, Shortness of Breath (Subjective dyspnea as she cannot take a full deep breath as it makes the pain worse). Denies: cough w sputum, Diaphoresis, Fever/Chills, Headaches, Nausea/Vomiting, Rash, Seizure, Syncope Treatments DIRECTOR OPERATIONS: Reports: Other (see below) (Medics have given her a nitroglycerin spray. IV was started. She is also been given 4 baby aspirin chewed.) Right Chest Pain Score (Numeric/FACES): 9 - Related Data Allergies Allergy/AdvReac Type Severity Reaction Status Date / Time Sulfa (Sulfonamide Allergy Severe Swelling Verified 04/19/20 09:02 Antibiotics) Home Meds: Home Meds Levothyroxine [Synthroid] 88 mcg PO DAILY 07/02/18 [History] Losartan Potassium 25 mg PO DAILY 07/02/18 [History] Phenytoin Sodium Extended [Dilantin] 300 mg PO BID 07/02/18 [History] Rosuvastatin [Crestor] 10 mg PO BEDTIME 07/02/18 [History] Aspirin 81 mg PO DAILY 04/30/19 [History] B12/Levomefolate Calcium/B-6 [Folbic Rf Tablet] 1 mg PO DAILY 04/30/19 [History] Iron,Carbonyl/Ascorbic Acid [Iron 100-Vitamin C Tablet] 1 mg PO DAILY 04/30/19 [History] LORazepam [Ativan] 0.5 mg PO BID PRN #15 tablet 04/30/19 [Rx] Mirtazapine [Remeron] 15 mg PO BEDTIME #30 tab 04/30/19 [Rx] traZODone HCl [Trazodone HCl] 50 mg PO BEDTIME 04/30/19 [History] Rivaroxaban [Xarelto] 15 mg PO DAILY #30 tab 04/19/20 [Rx] oxyCODONE HCl/Acetaminophen [Percocet 5-325 mg Tablet] 1 each PO Q4H PRN #20 tablet 04/19/20 [Rx] Past Medical History HEENT History: Reports: Glaucoma Cardiovascular History: Reports: High Cholesterol, Hypertension Respiratory History: Reports: None Gastrointestinal History: Reports: Colon Polyp, GERD Genitourinary History: Reports: Renal Calculus, Urinary Incontinence (stress incontinence) 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: Musculoskeletal History: Reports: Arthritis, Fracture (left elbow), Gout (suspected, not confirmed) Other Musculoskeletal History: ruptured disc and gets injections Neurological History: Reports: Seizure (Remains on Dilantin 300 mg extended release tablets twice daily) Psychiatric History: Reports: Anxiety, Depression Endocrine/Metabolic History: Reports: Hypothyroidism Hematologic History: Reports: None Immunologic History: Reports: None Oncologic (Cancer) History: Reports: Lymphoma (mycosis fungoides, 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 Dermatologic History: Reports: None - Infectious Disease History Infectious Disease History: Reports: None - Past Surgical History GI Surgical History: Reports: Colonoscopy (x 1), Other (See Below) (Hemorrhoidectomy) Oncologic Surgical History: Reports: Other (See Below) (Left neck lymph node excision) Social & Family History - Caffeine Use Caffeine Use: Reports: Coffee - Living Situation & Occupation Living situation: Reports: , with Family (Sister) Occupation: Retired ED ROS GENERAL - Review of Systems Review Of Systems: See Below Constitutional: Reports: Malaise, Weakness, Fatigue, Decreased Appetite, Weight Loss. Denies: Fever, Chills HEENT: Reports: Glasses, Other (Fairly has some problems with visual acuity due to macular degeneration.) Respiratory: Reports: Shortness of Breath, Wheezing, Other (Kyphosis with some restrictive lung disease component). Denies: Pleuritic Chest Pain, Cough, Sputu m Cardiovascular: Reports: Chest Pain (See history of present illness), Blood Pressure Problem, Dyspnea on Exertion. Denies: Claudication, Edema, Lightheadedness, Orthopnea, Palpitations Endocrine: Reports: Fatigue GI/Abdominal: Reports: Constipation (Patient problems with constipation), Decreased Appetite. Denies: Nausea, Stool Incontinence, Vomiting : Reports: Frequency, Incontinence (Component) Musculoskeletal: Reports: Neck Pain, Shoulder Pain, Back Pain, Joint Pain (Is and hips at times.) Skin: Reports: Bruising (Oozes easily as she bumps into things quite often.) Neurological: Reports: Difficulty Walking, Weakness. Denies: Confusion, Dizziness, Headache, Numbness, Pre-Existing Deficit, Seizure, Syncope, Tingling, Trouble Speaking Psychiatric: Reports: No Symptoms Hematologic/Lymphatic: Reports: No Symptoms Immunologic: Reports: No Symptoms ED EXAM, GENERAL - Physical Exam Exam: See Below Exam Limited By: Physical Impairment ([place] hard of hearing.) General Appearance: Alert, Anxious, Moderate Distress, Other (Temperature is 35.7 which is likely incorrect. Heart rate was 92 respiratory was 24 with O2 sats of 95% room air BP slightly elevated 161 105.) Eye Exam: Bilateral Eye: Normal Inspection (No scleral icterus or blepharal pallor), PERRL Neck: Normal Inspection, Supple, Tender Lateral. No: Carotid Bruit, Lymphadenopathy (L), Lymphadenopathy (R) (She states no worse than normal.) Respiratory/Chest: No Accessory Muscle Use, Respiratory Distress, Rales (Prieto at rest. Rales throughout the right lung base.), Other (Marked tenderness on palpation of the right lower anterior ribs 9 and 10 in the midclavicular line no rash apparent.) Cardiovascular: Normal Peripheral Pulses, Regular Rate, Rhythm, No Edema, No Gallop, No Murmur, No Rub Peripheral Pulses: 2+: Carotid (L), Carotid (R), Posterior Tibial (L), Posterior Tibial (R), Dorsalis Pedis (L), Dorsalis Pedis (R) GI/Abdominal: Normal Bowel Sounds, Soft, No Organomegaly, No Abnormal Bruit, No Mass, Pelvis Stable, Distended (Mildly distended and firm to palpation. Bladder appears to be full), Tender (Like tenderness on deep palpation right upper quadrant with a minimally positive Lugo sign.). No: Guarding Back Exam: Other (Moderate kyphosis thoracic spine.). No: CVA Tenderness (L), CVA Tenderness (R) Extremities: Normal Inspection, Normal Range of Motion, No Pedal Edema Neurological: Alert, Oriented, CN II-XII Intact, Normal Cognition, No Motor/Sensory Deficits Psychiatric: Anxious Skin Exam: Warm, Dry, Intact, Ecchymosis (Ramona ecchymoses on the anterior aspect of her left tib-fib which appear to be 3 or 4 days old.) #1 Interpretation EKG Date: 04/19/20 Time: 09:11 Rhythm: NSR Rate (Beats/Min): 90 [place]: LAD-Left [place] Deviation (Mild left axis deviation of -9 degrees) P-Wave: Present QRS: Other (Early R wave transition suggesting right ventricular hypertrophy pattern. Tall R wave in lead I also suggest left ventricular perjury pattern. 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 There is also some repolarization abnormalities in V5 V6. T wave flattening V3 to V6. Cannot rule out ischemia.) Course - Vital Signs Last Recorded V/S: Last Vital Signs Temp 36.1 C 04/19/20 12:33 Pulse 94 04/19/20 12:33 Resp 18 04/19/20 12:33 BP 169/107 H 04/19/20 12:33 Pulse Ox 92 L 04/19/20 12:33 - Orders/Labs/Meds Orders: Active Orders 24 hr Category Date Time Status Insert Piña Catheter [Insert Urinary Catheter] [OM.PC] Care 04/19/20 10:10 Ordered Stat PHENYTOIN [REF] Stat Lab 04/19/20 09:17 Received Labs: Laboratory Tests 04/19/20 04/19/20 04/19/20 Range/Units 09:17 09:17 09:17 WBC 10.79 H (3.98-10.04) K/mm3 RBC 4.86 (3.98-5.22) M/mm3 Hgb 15.0 (11.2-15.7) gm/dl Hct 45.9 H (34.1-44.9) % MCV 94.4 (79.4-94.8) fl MCH 30.9 (25.6-32.2) pg MCHC 32.7 (32.2-35.5) g/dl RDW Std Deviation 45.7 (36.4-46.3) fL Plt Count 219 (182-369) K/mm3 MPV 10.8 (9.4-12.3) fl Neut % (Auto) 73.0 H (34.0-71.1) % Lymph % (Auto) 14.9 L (19.3-51.7) % [place] % (Auto) 10.6 (4.7-12.5) % Eos % (Auto) 0.9 (0.7-5.8) Baso % (Auto) 0.3 (0.1-1.2) % Neut # (Auto) 7.88 H (1.56-6.13) K/mm3 Lymph # (Auto) 1.61 (1.18-3.74) K/mm3 [place] # (Auto) 1.14 H (0.24-0.36) K/mm3 Eos # (Auto) 0.10 (0.04-0.36) K/mm3 Baso # (Auto) 0.03 (0.01-0.08) K/mm3 ESR (0-20) mm/hr PT 10.3 (9.7-12.0) SECONDS INR 0.96 APTT (21.7-31.4) SECONDS D-Dimer, Quantitative (0.19-0.50) mg/L Sodium 144 (136-145) mEq/L Potassium 3.7 (3.5-5.1) mEq/L Chloride 105 (98-107) mEq/L Carbon Dioxide 30 (21-32) mEq/L Anion Gap 12.7 (5-15) BUN 9 (7-18) mg/dL Creatinine 0.9 (0.55-1.02) mg/dL Est Cr Clr Drug Dosing 32.83 mL/min Estimated GFR (MDRD) 60 (>60) mL/min BUN/Creatinine Ratio 10.0 L (14-18) Glucose 116 H (83-115) mg/dL Calcium 10.4 H (8.5-10.1) mg/dL Magnesium 2.1 (1.8-2.4) mg/dl Total Bilirubin 0.6 (0.2-1.0) mg/dL AST 14 L (15-37) U/L ALT 18 (14-59) U/L Alkaline Phosphatase 112 (46-116) U/L Lactate Dehydrogenase 186 (81-234) U/L CK-MB (CK-2) 1.3 (0-3.6) ng/ml Troponin I < 0.017 (0.00-0.056) ng/mL C-Reactive Protein 3.4 H* (<1.0) mg/dL NT-Pro-B Natriuret Pep (0-450) pg/mL Total Protein 6.9 (6.4-8.2) g/dl Albumin 3.6 (3.4-5.0) g/dl Globulin 3.3 gm/dL Albumin/Globulin Ratio 1.1 (1-2) Urine Color (Yellow) Urine Appearance (Clear) Urine pH (5.0-8.0) Ur Specific [place] (1.005-1.030) Urine Protein (Negative) Urine Glucose (UA) (Negative) Urine Ketones (Negative) Urine Occult Blood (Negative) Urine Nitrite (Negative) Urine Bilirubin (Negative) Urine Urobilinogen (0.2-1.0) Ur Leukocyte Esterase (Negative) Urine RBC (0-5) /hpf Urine WBC (0-5) /hpf Ur Epithelial Cells (0-5) /hpf Urine Bacteria (FEW) /hpf Urine Mucus (FEW) /hpf 04/19/20 04/19/20 04/19/20 Range/Units 09:17 09:17 09:17 WBC (3.98-10.04) K/mm3 RBC (3.98-5.22) M/mm3 Hgb (11.2-15.7) gm/dl Hct (34.1-44.9) % MCV (79.4-94.8) fl MCH (25.6-32.2) pg MCHC (32.2-35.5) g/dl RDW Std Deviation (36.4-46.3) fL Plt Count (182-369) K/mm3 MPV (9.4-12.3) fl Neut % (Auto) (34.0-71.1) % Lymph % (Auto) (19.3-51.7) % [place] % (Auto) (4.7-12.5) % Eos % (Auto) (0.7-5.8) Baso % (Auto) (0.1-1.2) % Neut # (Auto) (1.56-6.13) K/mm3 Lymph # (Auto) (1.18-3.74) K/mm3 [place] # (Auto) (0.24-0.36) K/mm3 Eos # (Auto) (0.04-0.36) K/mm3 Baso # (Auto) (0.01-0.08) K/mm3 ESR 3 (0-20) mm/hr PT (9.7-12.0) SECONDS INR APTT 27.1 (21.7-31.4) SECONDS D-Dimer, Quantitative (0.19-0.50) mg/L Sodium (136-145) mEq/L Potassium (3.5-5.1) mEq/L Chloride (98-107) mEq/L Carbon Dioxide (21-32) mEq/L Anion Gap (5-15) BUN (7-18) mg/dL Creatinine (0.55-1.02) mg/dL Est Cr Clr Drug Dosing mL/min Estimated GFR (MDRD) (>60) mL/min BUN/Creatinine Ratio (14-18) Glucose (83-115) mg/dL Calcium (8.5-10.1) mg/dL Magnesium (1.8-2.4) mg/dl Total Bilirubin (0.2-1.0) mg/dL AST (15-37) U/L ALT (14-59) U/L Alkaline Phosphatase (46-116) U/L Lactate Dehydrogenase (81-234) U/L CK-MB (CK-2) (0-3.6) ng/ml Troponin I (0.00-0.056) ng/mL C-Reactive Protein (<1.0) mg/dL NT-Pro-B Natriuret Pep 539 H (0-450) pg/mL Total Protein (6.4-8.2) g/dl Albumin (3.4-5.0) g/dl Globulin gm/dL Albumin/Globulin Ratio (1-2) Urine Color (Yellow) Urine Appearance (Clear) Urine pH (5.0-8.0) Ur Specific [place] (1.005-1.030) Urine Protein (Negative) Urine Glucose (UA) (Negative) Urine Ketones (Negative) Urine Occult Blood (Negative) Urine Nitrite (Negative) Urine Bilirubin (Negative) Urine Urobilinogen (0.2-1.0) Ur Leukocyte Esterase (Negative) Urine RBC (0-5) /hpf Urine WBC (0-5) /hpf Ur Epithelial Cells (0-5) /hpf Urine Bacteria (FEW) /hpf Urine Mucus (FEW) /hpf 04/19/20 04/19/20 Range/Units 09:17 10:10 WBC (3.98-10.04) K/mm3 RBC (3.98-5.22) M/mm3 Hgb (11.2-15.7) gm/dl Hct (34.1-44.9) % MCV (79.4-94.8) fl MCH (25.6-32.2) pg MCHC (32.2-35.5) g/dl RDW Std Deviation (36.4-46.3) fL Plt Count (182-369) K/mm3 MPV (9.4-12.3) fl Neut % (Auto) (34.0-71.1) % Lymph % (Auto) (19.3-51.7) % [place] % (Auto) (4.7-12.5) % Eos % (Auto) (0.7-5.8) Baso % (Auto) (0.1-1.2) % Neut # (Auto) (1.56-6.13) K/mm3 Lymph # (Auto) (1.18-3.74) K/mm3 [place] # (Auto) (0.24-0.36) K/mm3 Eos # (Auto) (0.04-0.36) K/mm3 Baso # (Auto) (0.01-0.08) K/mm3 ESR (0-20) mm/hr PT (9.7-12.0) SECONDS INR APTT (21.7-31.4) SECONDS D-Dimer, Quantitative 4.31 H (0.19-0.50) mg/L Sodium (136-145) mEq/L Potassium (3.5-5.1) mEq/L Chloride (98-107) mEq/L Carbon Dioxide (21-32) mEq/L Anion Gap (5-15) BUN (7-18) mg/dL Creatinine (0.55-1.02) mg/dL Est Cr Clr Drug Dosing mL/min Estimated GFR (MDRD) (>60) mL/min BUN/Creatinine Ratio (14-18) Glucose (83-115) mg/dL Calcium (8.5-10.1) mg/dL Magnesium (1.8-2.4) mg/dl Total Bilirubin (0.2-1.0) mg/dL AST (15-37) U/L ALT (14-59) U/L Alkaline Phosphatase (46-116) U/L Lactate Dehydrogenase (81-234) U/L CK-MB (CK-2) (0-3.6) ng/ml Troponin I (0.00-0.056) ng/mL C-Reactive Protein (<1.0) mg/dL NT-Pro-B Natriuret Pep (0-450) pg/mL Total Protein (6.4-8.2) g/dl Albumin (3.4-5.0) g/dl Globulin gm/dL Albumin/Globulin Ratio (1-2) Urine Color Yellow (Yellow) Urine Appearance Clear (Clear) Urine pH 7.5 (5.0-8.0) Ur Specific [place] 1.020 (1.005-1.030) Urine Protein Negative (Negative) Urine Glucose (UA) Negative (Negative) Urine Ketones Negative (Negative) Urine Occult Blood Negative (Negative) Urine Nitrite Negative (Negative) Urine Bilirubin Negative (Negative) Urine Urobilinogen 1.0 (0.2-1.0) Ur Leukocyte Esterase Negative (Negative) Urine RBC 0-5 (0-5) /hpf Urine WBC 0-5 (0-5) /hpf Ur Epithelial Cells 0-5 (0-5) /hpf Urine Bacteria Rare (FEW) /hpf Urine Mucus Not seen (FEW) /hpf Meds: Medications Discontinued Medications Generic Name Dose Route Start Last Admin Trade Name Halie PRN Reason Stop Dose Admin Enoxaparin Sodium 60 mg 04/19/20 12:09 04/19/20 12:28 Lovenox SUBCUT 04/19/20 12:10 60 mg ONETIME ONE Administration Hydromorphone HCl 0.25 mg 04/19/20 08:54 04/19/20 09:15 Dilaudid IVPUSH 04/19/20 08:55 0.25 mg ONETIME ONE Administration Hydromorphone HCl 0.5 mg 04/19/20 11:06 04/19/20 11:21 Dilaudid IVPUSH 04/19/20 11:07 0.5 mg ONETIME ONE Administration Dextrose/Sodium Chloride 1,000 mls @ 125 mls/hr 04/19/20 09:00 04/19/20 09:17 Dextrose 5%-Normal Saline IV 125 mls/hr ASDIRECTED FAMILIA Administration Iopamidol 100 ml 04/19/20 10:32 04/19/20 10:48 Isovue-370 (76%) IVPUSH 04/19/20 10:33 100 ml ONETIME ONE Administration Ketorolac Tromethamine 30 mg 04/19/20 10:00 Toradol IVPUSH ONETIME FAMILIA Ondansetron HCl 4 mg 04/19/20 08:55 04/19/20 09:12 Zofran IVPUSH 04/19/20 08:56 4 mg ONETIME ONE Administration Sodium Chloride 10 ml 04/19/20 10:32 04/19/20 10:48 Saline Flush FLUSH 10 ml ONETIME PRN Administration Keep Vein Open - Radiology Interpretation Free Text/Narrative:: 84-year-old female presents to the ED per [facility] complaining of right-sided chest pain which seems to be made worse by palpation directly underneath her right breast over ribs 7 8 and 9. No rash present. Compression of the ribs gave her increased pain in this area. She states this came on last night before bed and has persisted throughout the night and is worse this morning. Of concern is she is a heavy smoker a pack per day for [id number] history. History of hypertension and likely cor pulmonale by the looks of her ECG. ECG does not document any obvious acute ischemia although the lateral wall could be involved all the way I suspect this is due to repolarization abnormalities. She will have a complete cardiac work-up. She was given 4 baby aspirin's in the ambulance. She will be given Dilaudid 0.25 mg IV for pain relief with Zofran 4 mg IV as well. IV will be D5 normal saline at 125 mils per hour. D-dimer will also be done. - Re-Assessments/Exams Free Text/Narrative Re-Assessment/Exam: 04/19/20 09:40 portable chest x-ray reveals poor inspiration. There is very slight blunting of the right costophrenic angle. Tortuous thoracic aorta appreciated cardiac silhouette within normal limits. No pneumothorax. Diffuse interstitial disease in both lungs suspect pulmonary fibrosis. Appears that she has a rather large hiatal hernia in the retrocardiac space as well. 04/19/20 09:46 on reevaluation she still having significant pleuritic type pain with inability to take a full deep breath on the right chest. She again seems to have pain on palpation of the anterior right chest wall . She did fall and required ciera in a occipital scalp wound about 3 weeks ago. There is no history of injury to the ribs at that time. O2 sats remained 90% room air after the Dilaudid 0.25 mg IV. Will await the results of further tests. May benefit from steroids to relieve inflammation. 04/19/20 10:00 Initial white count is elevated at 10.79. The auto differential shows 73% neutrophils hemoglobin is 15.0 with hematocrit of 45.9 platelet count 219,000. Chemistry shows a sodium of 144 and a potassium of 3.7. Chloride is 105 with a bicarb of 30. Anion gap is 12.7 BUN is 9 with a creatinine of 0.9 GFR remains greater than 60. Glucose 116. Calcium slightly elevated at 10.4 magnesium 2.1 liver function is normal. LDH is normal at 186 CK-MB fraction 1.3 troponin I is less than 0.017 C-reactive protein is 3.4 BNP is 539. Total protein 6.9 with albumin fraction of 3.6. D-dimer is pending. 04/19/20 10:07 .PT is 10.3 with an INR of 0.96 PTT is 27.1 D-dimer is elevated at 4.31. She will therefore have CT pulmonary angiogram performed since her creatinine is 0.9 and her GFR is greater than 60. 04/19/20 10:20 BNP is mildly elevated at 539. 04/19/20 10:46 Urinalysis collected by catheterization is negative for any signs of infection. 04/19/20 11:06 Patient is having increased right-sided chest pain primarily anteriorly but she feels pain in the right posterior chest wall as well. Will repeat Dilaudid this time 0.5 mg IV for pain relief so that she can lie flat for CT pulmonary angiogram study. 04/19/20 11:50: CT pulmonary angiogram has been completed. Pulmonary arteries are well-opacified. Pulmonary embolism is identified within the right upper lobe segmental and subsegmental branches. Minimal pulmonary bullae are seen within a subsegmental branch within the left lower lung as well. Mild pulmonary emboli are seen within the subsegmental branches of the right lower lung. Small nonobstructing calculi are present within both kidneys. Moderately large hiatal hernia noted. No pericardial wall thickening is seen. Coronary artery calcification noted. This time shows no adenopathy or mass. Thoracic aorta shows atherosclerotic change without aneurysm. Diffuse emphysematous changes are present in both lungs. Scattered linear densities are noted within the lower lungs most likely due to scarring. No definite acute osseous findings are appreciated. There is a nonunited fracture within the manubrium which shows some surrounding sclerosis. Thoracic spine shows scattered degenerative changes. There are several old anterior left-sided rib fractures being seen which are healed. Several old healed fractures are also noted on the right side which are healed. Degenerative change appreciated within both shoulders. Plan. She will be given Lovenox 1 mg/kg subcu at this time. I will then be to start her on Xarelto 15 mg tablet twice daily for the next 3 weeks and then converting her to 20 mg once daily for five months. It is noted that Xarelto, Eliquis and Coumadin do not play well with Dilantin. Dilantin may decrease the effectiveness of all 3 medications. Xarelto was chosen due to ability to give it once daily after the initial first 21 days. I believe she is of small stature and that the anticoagulants will be effective for PE in this regard. Will advise follow-up with her personal care physician in 10 days time. Her O2 sats are borderline at best with significant COPD. O2 sats here are staying around 90 on room air. Family expressed some concern about taking her home versus being admitted to the hospital. At this time nothing further would be done even if she was in the hospital. Concern is for possible underlying malignancy as she is complaining of decreased appetite for the last couple of months. Underlying malignancy would be a potential cause of pulmonary embolism. Particularly pancreatic carcinoma or renal cell carcinoma. I could find no evidence of a malignancy in the lungs on CT pulmonary angiogram. The pancreas was very poorly observed on the CT of the chest. Departure - Departure Time of Disposition: 12:22 Disposition: Home, Self-Care 01 Reason for Transfer *Q: Other Condition: Fair Clinical Impression: Non-cardiac chest pain Pulmonary embolism Qualifiers: Pulmonary embolism type: unspecified Chronicity: acute Acute cor pulmonale presence: without acute cor pulmonale Qualified Code(s): I26.99 - Other pulmonary embolism without acute cor pulmonale Chronic obstructive pulmonary disease Qualifiers: COPD type: emphysema Emphysema type: panlobular Qualified Code(s): J43.1 - Panlobular emphysema Prescriptions: oxyCODONE HCl/Acetaminophen [Percocet 5-325 mg Tablet] 1 each PO Q4H PRN #20 tablet PRN Reason: pain relief. Rivaroxaban [Xarelto] 15 mg PO DAILY #30 tab Instructions: Chronic Obstructive Pulmonary Disease, Pulmonary Embolism Referrals: Demi Dobson MD [Primary Care Provider] - Forms: ED Department Discharge Additional Instructions: Evaluation in the emergency room today in regards to development of right sided anterior chest pain that worsened overnight. Investigations revealed there was no evidence of heart related illness. However markers for increased blood clotting were identified and CT pulmonary angiogram of the chest was completed and reveals that there are multiple pulmonary emboli throughout the right lung both upper mid and lower lung and also a few in the left lower lung field. The reason for this occurrence is unclear. Treatment was initial dose of Lovenox in the emergency room to thin your blood. You will need to start your first tablet of Xarelto 15 mg tonight. Suggest taking it before bed. This medication is to be used twice daily morning and bedtime for the next 3 weeks and then switch to 20 mg tablet once daily. Strongly suggest follow-up with your primary care provider in 10 days time. May use pain medication Percocet 5/325 mg 1 tablet every 4-6 hours as needed for pain relief. Of note pain pills can cause constipation. Also suggest use of MiraLAX powder 710 g or 1 scoop daily while taking the pain pill to prevent constipation from occurring. Sepsis Event Note (ED) - Focused Exam Vital Signs: Vital Signs Temp Pulse Resp BP Pulse Ox 04/19/20 12:33 36.1 C 94 18 169/107 H 92 L 04/19/20 08:48 35.7 C L 92 24 H 161/105 H 95 - My Orders Last 24 Hours: My Active Orders 04/19/20 09:17 PHENYTOIN [REF] Stat 04/19/20 10:10 Insert Piña Catheter [Insert Urinary Catheter] [OM.PC] Stat - Assessment/Plan Last 24 Hours: My Active Orders 04/19/20 09:17 PHENYTOIN [REF] Stat 04/19/20 10:10 Insert Piña Catheter [Insert Urinary Catheter] [OM.PC] Stat
[2020-04-19] MEDS ORDERED: Dextrose 5%-0.9% NaCl 1,000 ML IV SCH (09:00)
[2020-04-19] MEDS ORDERED: Ketorolac 30 MG/ML SDV IVPUSH SCH (10:00)
--- NOTE | 2020-04-19 10:21 | CR ---
Chest: Portable view of the chest was obtained. Comparison: Prior chest x-ray of 03/07/20. Hiatal hernia appears to be present. Heart size is stable. Tortuous thoracic aorta is noted. Lungs show no acute parenchymal change. Bony structures are osteopenic. Impression: 1. Hiatal hernia. 2. Nothing acute is definitely appreciated on portable chest x-ray. Diagnostic code #2
[2020-04-19] MEDS ORDERED: Iopamidol 755 Mg/ML 100 ML Bottle IVPUSH ONE (10:32)
[2020-04-19] MEDS ORDERED: Sodium Chloride 0.9% 10 ML Syringe FLUSH PRN (10:32)
--- NOTE | 2020-04-19 11:19 | CT ---
CT chest Technique: Multiple axial sections through the chest were obtained. Intravenous contrast was utilized. Study has been performed as a pulmonary angiogram protocol. Comparison: Prior chest x-ray performed on the same day (04/19/20). Findings: Pulmonary arteries are well opacified. Pulmonary embolism is identified within the right upper lobe segmental and subsegmental branches. Minimal pulmonary emboli is seen within a segmental branch within the left lower lung. Mild pulmonary emboli are seen within the subsegmental branches of the right lower lung. Small nonobstructing calculus is seen within both kidneys. Moderately large hiatal hernia is noted. No pericardial thickening is seen. Coronary artery calcification is noted. Mediastinum shows no adenopathy or mass. Thoracic aorta shows atherosclerotic change without aneurysm. Diffuse emphysematous changes are present. Scattered linear densities are noted within the lower lungs most likely due to mild scarring. No definite acute osseous findings are appreciated. Nonunited fracture is noted within the manubrium which shows some surrounding sclerosis. Thoracic spine shows scattered degenerative change. There are several old anterior left sided rib fractures being seen which are healed. Several old healed fractures are also noted on the right side. Degenerative change is noted within both shoulders. Impression: 1. Mild pulmonary embolism. 2. Ununited fracture within the manubrium which appears old with surrounding sclerosis. 3. Old bilateral rib fractures. 4. Emphysematous change with mild areas of scarring. Diagnostic code #5
[2020-04-19] MEDS ORDERED: Enoxaparin 60 MG/0.6 ML Syringe SUBCUT ONE (12:09)
== END 2020-04-19 12:45 | disposition home or self-care (01) ==
LOC: JD.ED 08:48
DX: I26.99 Other pulmonary embolism without acute cor pulmonale (principal); J43.1 Panlobular emphysema; I10 Essential (primary) hypertension; E78.00 Pure hypercholesterolemia, unspecified; E03.9 Hypothyroidism, unspecified; Z88.2 Allergy status to sulfonamides; Z79.82 Long term (current) use of aspirin; Z79.01 Long term (current) use of anticoagulants; Z79.899 Other long term (current) drug therapy; R06.02 Shortness of breath
CPT/HCPCS: 36415; 71045; 71275; 80053; 80185; 81001; 82553; 83615; 83735; 83880; 84484; 85025; 85379; 85610; 85652; 85730; 86140; 93005; 96372; 96374; 96375; 96376; 99285; J1170; J1650; J2405; J7042; Q9967; 93010

== ENCOUNTER 2020-05-11 21:42 | Emergency (ER) | payer MEDICARE, OTHER ==
[2020-05-11] MEDS ORDERED: Sodium Chloride 0.9% 10 ML Syringe FLUSH PRN (22:12)
[2020-05-11] MEDS ORDERED: Sodium Chloride 0.9% 1,000 ML IV SCH (22:15)
--- NOTE | 2020-05-11 23:38 | EDM.PDOC ---
ED HPI GENERAL MEDICAL PROBLEM - General Chief Complaint: General Stated Complaint: [facility] Time Seen by Provider: 05/11/20 21:54 Source of Information: Reports: Patient, EMS, Family, Alf Records History Limitations: Reports: No Limitations - History of Present Illness INITIAL COMMENTS - FREE TEXT/NARRATIVE: The patient presents by [facility] from [facility] for falls. The patient is on blood thinners for a PE. She just moved to assisted living from home. She has been having trouble with getting around and balance. Her daughter in law says she has not been acting right since after Tony. She was bad enough that she needed to be admitted into assisted living. She has been more confused the past couple of days and more weak. She is being treated for a UTI with macrobid 2 times per day. She has no headache, fever, chills, cough, chest pain, shortness of breath, abdominal pain, nausea or vomiting. She has some bruising to her left shoulder, left knee and over her left eye. She is on xarelto for a PE that was found a couple of weeks ago. Onset: Gradual Duration: Day(s): Severity: Moderate Improves with: Reports: None Worsens with: Reports: None Associated Symptoms: Reports: No Other Symptoms - Related Data Allergies Allergy/AdvReac Type Severity Reaction Status Date / Time Sulfa (Sulfonamide Allergy Severe Swelling Verified 04/19/20 09:02 Antibiotics) Home Meds: Home Meds Levothyroxine [Synthroid] 88 mcg PO DAILY 07/02/18 [History] Losartan Potassium 25 mg PO DAILY 07/02/18 [History] Phenytoin Sodium Extended [Dilantin] 300 mg PO BID 07/02/18 [History] Rosuvastatin [Crestor] 10 mg PO BEDTIME 07/02/18 [History] Aspirin 81 mg PO DAILY 04/30/19 [History] B12/Levomefolate Calcium/B-6 [Folbic Rf Tablet] 1 mg PO DAILY 04/30/19 [History] Iron,Carbonyl/Ascorbic Acid [Iron 100-Vitamin C Tablet] 1 mg PO DAILY 04/30/19 [History] LORazepam [Ativan] 0.5 mg PO BID PRN #15 tablet 04/30/19 [Rx] Mirtazapine [Remeron] 15 mg PO BEDTIME #30 tab 04/30/19 [Rx] traZODone HCl [Trazodone HCl] 50 mg PO BEDTIME 04/30/19 [History] Rivaroxaban [Xarelto] 15 mg PO DAILY #30 tab 04/19/20 [Rx] oxyCODONE HCl/Acetaminophen [Percocet 5-325 mg Tablet] 1 each PO Q4H PRN #20 tablet 04/19/20 [Rx] Past Medical History HEENT History: Reports: Glaucoma, Impaired Vision Other HEENT History: wears eyeglasses. 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: Musculoskeletal History: Reports: Arthritis, Fracture, Gout Other Musculoskeletal History: ruptured disc and gets injections Neurological History: Reports: Seizure Psychiatric History: Reports: Anxiety, Depression Endocrine/Metabolic History: Reports: Hypothyroidism Hematologic History: Reports: None Immunologic History: Reports: None Oncologic (Cancer) History: Reports: 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 Dermatologic History: Reports: None - Infectious Disease History Infectious Disease History: Reports: Chicken Pox, Measles, Mumps - Past Surgical History GI Surgical History: Reports: Colonoscopy, Other (See Below) Other GI Surgeries/Procedures: hemmoroidectomy Oncologic Surgical History: Reports: Other (See Below) Social & Family History - Tobacco Use Tobacco Use Status *Q: Unknown Ever Used Tobacco - Caffeine Use Caffeine Use: Reports: Other Other Caffeine Use: unsure - Recreational Drug Use Other Recreational Drug Type: unsure - Living Situation & Occupation Living situation: Reports: , with Family (Sister) Occupation: Retired ED ROS GENERAL - Review of Systems Review Of Systems: See Below Constitutional: Reports: No Symptoms HEENT: Reports: No Symptoms Respiratory: Reports: No Symptoms Cardiovascular: Reports: No Symptoms Endocrine: Reports: No Symptoms GI/Abdominal: Reports: No Symptoms : Reports: No Symptoms Musculoskeletal: Reports: Other (left shoulder ecchymosis and left knee ecchymosis) ED EXAM, GENERAL - Physical Exam Exam: See Below Exam Limited By: No Limitations General Appearance: Alert, No Apparent Distress Ears: Normal External Exam Nose: Normal Inspection Head: Other (Edema and ecchymosis above the left eye) Neck: Supple, Tender Lateral (right) Respiratory/Chest: No Respiratory Distress, Lungs Clear, Normal Breath Sounds Cardiovascular: Regular Rate, Rhythm, No Edema, No Murmur GI/Abdominal: Soft, Non-Tender, No Organomegaly, No Mass Extremities: Other (Pain upon palpation and ecchymosis to the left anterior shoulder with good sensation and pulses distally. Ecchymosis and pain upon palpation to the left knee with good sensation and pulses.) Neurological: Alert, Oriented, No Motor/Sensory Deficits #1 Interpretation EKG Date: 05/11/20 Time: 23:14 Rhythm: NSR Rate (Beats/Min): 74 [place]: Normal P-Wave: Present QRS: Normal ST-T: Normal QT: Normal Course - Vital Signs Last Recorded V/S: Last Vital Signs Temp 98.6 F 05/11/20 22:06 Pulse 85 05/11/20 22:06 Resp 24 H 05/11/20 22:06 BP 98/65 05/11/20 22:06 Pulse Ox 91 L 05/11/20 22:06 - Orders/Labs/Meds Orders: Active Orders 24 hr Category Date Time Status Cardiac Monitoring [RC] . DIRECTED Care 05/11/20 22:12 Active EKG Documentation Completion [RC] ASDIRECTED Care 05/11/20 23:03 Active Peripheral IV Care [RC] . DIRECTED Care 05/11/20 22:13 Active Cervical Spine wo Cont [CT] Stat Exams 05/11/20 22:14 Taken Head wo Cont [CT] Stat Exams 05/11/20 22:14 Taken Knee Min 4V Lt [CR] Stat Exams 05/11/20 22:15 Taken Shoulder Comp Lt [CR] Stat Exams 05/11/20 22:14 Taken CORONAVIRUS COVID-19 DEV [MOLEC] Stat Lab 05/11/20 23:33 Received Sodium Chloride 0.9% [Normal Saline] 1,000 ml Med 05/11/20 22:15 Active IV ASDIRECTED Sodium Chloride 0.9% [Normal Saline] 1,000 ml Med 05/12/20 00:08 Ordered IV ONETIME Sodium Chloride 0.9% [Saline Flush] Med 05/11/20 22:12 Active 10 ml FLUSH ASDIRECTED PRN Peripheral IV Insertion Adult [OM.PC] Stat Oth 05/11/20 22:12 Ordered EKG 12 Lead [EK] Stat Ther 05/11/20 23:03 Ordered Medication Orders Sodium Chloride (Normal Saline) 1,000 mls @ 125 mls/hr IV ASDIRECTED FAMILIA Last Admin: 05/11/20 23:31 Dose: 125 mls/hr Documented by: [id number] Sodium Chloride (Normal Saline) 1,000 mls @ 1,000 mls/hr IV ONETIME ONE Stop: 05/12/20 01:07 Sodium Chloride (Saline Flush) 10 ml FLUSH ASDIRECTED PRN PRN Reason: Keep Vein Open Last Admin: 05/11/20 23:31 Dose: 10 ml Documented by: [email or web address] Labs: Laboratory Tests 05/11/20 05/11/20 05/11/20 Range/Units 22:15 22:15 22:15 WBC 12.29 H (3.98-10.04) K/mm3 RBC 4.24 (3.98-5.22) M/mm3 Hgb 13.0 D (11.2-15.7) gm/dl Hct 39.9 (34.1-44.9) % MCV 94.1 (79.4-94.8) fl MCH 30.7 (25.6-32.2) pg MCHC 32.6 (32.2-35.5) g/dl RDW Std Deviation 44.7 (36.4-46.3) fL Plt Count 246 (182-369) K/mm3 MPV 11.3 (9.4-12.3) fl Neut % (Auto) 73.6 H (34.0-71.1) % Lymph % (Auto) 14.1 L (19.3-51.7) % [place] % (Auto) 10.7 (4.7-12.5) % Eos % (Auto) 1.2 (0.7-5.8) Baso % (Auto) 0.2 (0.1-1.2) % Neut # (Auto) 9.04 H (1.56-6.13) K/mm3 Lymph # (Auto) 1.73 (1.18-3.74) K/mm3 [place] # (Auto) 1.32 H (0.24-0.36) K/mm3 Eos # (Auto) 0.15 (0.04-0.36) K/mm3 Baso # (Auto) 0.03 (0.01-0.08) K/mm3 Manual Slide Review Normal smear Sodium 143 (136-145) mEq/L Potassium 3.1 L (3.5-5.1) mEq/L Chloride 105 (98-107) mEq/L Carbon Dioxide 25 (21-32) mEq/L Anion Gap 16.1 H (5-15) BUN 17 (7-18) mg/dL Creatinine 1.1 H (0.55-1.02) mg/dL Est Cr Clr Drug Dosing 30.93 mL/min Estimated GFR (MDRD) 47 (>60) mL/min BUN/Creatinine Ratio 15.5 (14-18) Glucose 113 (83-115) mg/dL Lactic Acid 1.6 (0.4-2.0) mmol/L Calcium 10.6 H (8.5-10.1) mg/dL Magnesium 2.0 (1.8-2.4) mg/dl Total Bilirubin 0.8 (0.2-1.0) mg/dL AST 36 (15-37) U/L ALT 26 (14-59) U/L Alkaline Phosphatase 110 (46-116) U/L Troponin I 1.483 H* (0.00-0.056) ng/mL C-Reactive Protein 4.5 H* (<1.0) mg/dL Total Protein 6.8 (6.4-8.2) g/dl Albumin 3.7 (3.4-5.0) g/dl Globulin 3.1 gm/dL Albumin/Globulin Ratio 1.2 (1-2) Meds: Medications Generic Name Dose Route Start Last Admin Trade Name Freq PRN Reason Stop Dose Admin Sodium Chloride 1,000 mls @ 125 mls/hr 05/11/20 22:15 05/11/20 23:31 Normal Saline IV 125 mls/hr ASDIRECTED FAMILIA Administration Sodium Chloride 1,000 mls @ 1,000 mls/hr 05/12/20 00:08 Normal Saline IV 05/12/20 01:07 ONETIME ONE Sodium Chloride 10 ml 05/11/20 22:12 05/11/20 23:31 Saline Flush FLUSH 10 ml ASDIRECTED PRN Administration Keep Vein Open - Re-Assessments/Exams Free Text/Narrative Re-Assessment/Exam: 05/12/20 00:17 I ordered an IV NS at 125mL/hr, CT of her head and cervical spine, EKG, x-ray of her shoulder and knee and labs. Her EKG shows a NSR with no acute changes. Her WBC was elevated at 12.29. Her K was low at 3.1. Her anion gap was elevated at 16.1. Her creatinine was elevated at 1.1. Her troponin was elevated at 1.483. Her CRP was elevated at 4.5. The CT of her cervical spine shows nothing acute. Her CT of her head shows no acute hemorrhage. Hyperdense right suprasellar lesion, most likely extra-axial. Primary considerations are meningioma and less likely an aneurysm. Neoplasm is still in the differential diagnosis. Consider further characterization with an MRI/MRA of the brain including post gadolinium images. I talked to the family and she is DNR/DNI. We do not have a bed here so I called [facility] in [place] and they accepted her there. I talked with Dr Andrade. Departure - Departure Time of Disposition: 00:30 Disposition: DC/Tfer to Acute Hospital 02 Condition: Serious Clinical Impression: Intracranial mass, Hypokalemia, Elevated troponin Fall Qualifiers: Encounter type: initial encounter Qualified Code(s): W19.XXXA - Unspecified fall, initial encounter Contusion of left shoulder Qualifiers: Encounter type: initial encounter Qualified Code(s): S40.012A - Contusion of left shoulder, initial encounter Contusion of left knee Qualifiers: Encounter type: initial encounter Qualified Code(s): S80.02XA - Contusion of left knee, initial encounter - Discharge Information Referrals: Demi Dobson MD [Primary Care Provider] - Forms: ED Department Discharge Sepsis Event Note (ED) - Evaluation Sepsis Screening Result: No Definite Risk - Focused Exam Vital Signs: Vital Signs Temp Pulse Resp BP Pulse Ox 05/11/20 22:06 98.6 F 85 24 H 98/65 91 L - My Orders Last 24 Hours: My Active Orders 05/11/20 22:12 Cardiac Monitoring [RC] . DIRECTED Sodium Chloride 0.9% [Saline Flush] 10 ml FLUSH ASDIRECTED PRN Peripheral IV Insertion Adult [OM.PC] Stat 05/11/20 22:13 Peripheral IV Care [RC] . DIRECTED 05/11/20 22:14 Cervical Spine wo Cont [CT] Stat Head wo Cont [CT] Stat Shoulder Comp Lt [CR] Stat 05/11/20 22:15 Knee Min 4V Lt [CR] Stat Sodium Chloride 0.9% [Normal Saline] 1,000 ml IV ASDIRECTED 05/11/20 23:03 EKG Documentation Completion [RC] ASDIRECTED EKG 12 Lead [EK] Stat 05/11/20 23:33 CORONAVIRUS COVID-19 DEV [MOLEC] Stat 05/12/20 00:08 Sodium Chloride 0.9% [Normal Saline] 1,000 ml IV ONETIME - Assessment/Plan Last 24 Hours: My Active Orders 05/11/20 22:12 Cardiac Monitoring [RC] . DIRECTED Sodium Chloride 0.9% [Saline Flush] 10 ml FLUSH ASDIRECTED PRN Peripheral IV Insertion Adult [OM.PC] Stat 05/11/20 22:13 Peripheral IV Care [RC] . DIRECTED 05/11/20 22:14 Cervical Spine wo Cont [CT] Stat Head wo Cont [CT] Stat Shoulder Comp Lt [CR] Stat 05/11/20 22:15 Knee Min 4V Lt [CR] Stat Sodium Chloride 0.9% [Normal Saline] 1,000 ml IV ASDIRECTED 05/11/20 23:03 EKG Documentation Completion [RC] ASDIRECTED EKG 12 Lead [EK] Stat 05/11/20 23:33 CORONAVIRUS COVID-19 DEV [MOLEC] Stat 05/12/20 00:08 Sodium Chloride 0.9% [Normal Saline] 1,000 ml IV ONETIME
[2020-05-12] MEDS ORDERED: Sodium Chloride 0.9% 1,000 ML IV ONE (00:08)
--- NOTE | 2020-05-12 08:01 | CR ---
Left shoulder: 4 views left shoulder were obtained. Comparison: No prior left shoulder study is available. Fairly severe degenerative change is noted within the glenohumeral joint with joint space narrowing and cystic change. Acromioclavicular joint shows minimal inferior spurring. Osteopenia is noted. No acute fracture or dislocation is appreciated. Impression: 1. Degenerative change and osteopenia. 2. Nothing acute is definitely appreciated on left shoulder study. Diagnostic code #2
--- NOTE | 2020-05-12 08:09 | CT ---
Head CT Technique: Multiple axial sections through the brain were obtained. Intravenous contrast was not utilized. Reconstructed sagittal and coronal images were obtained. Comparison: No previous intracranial imaging is available. Findings: Abnormality is identified within the suprasellar area on the right side. This is most likely extra-axial in location and shows evidence of calcifications. This finding is most likely due to a meningioma measuring approximately 3.5 cm in dimension. Ventricles along with basal cisterns and sulci over the convexities are mildly prominent. Mild diminished density is noted within the periventricular white matter compatible with small vessel ischemic demyelination change. No other abnormal parenchymal densities are seen. No evidence of midline shift or mass-effect is appreciated. Bone window settings were reviewed. Visualized mastoid sinuses and paranasal sinuses show nothing acute. No acute calvarial finding is seen. Impression: 1. Findings suspicious for meningioma within the right suprasellar area measuring up to 3.5 cm. MRI without and with intravenous gadolinium would be helpful to confirm. 2. Senescent change as noted above. 3. Nothing acute is otherwise seen on noncontrast head CT exam. Diagnostic code #3 I agree with preliminary report from [facility], finalized on 05/12/20, 12:35 AM THREAD CUTTER TENDER
--- NOTE | 2020-05-12 08:11 | CR ---
Left knee: 3 views of the left knee were obtained. Comparison: No prior knee exam is available. Moderate to severe joint space narrowing is noted medially. Lateral joint space is fairly well preserved. Osteophytes are seen laterally. The crosstable lateral view is less than optimal in positioning. Osteoporosis is noted. Vascular calcification is seen. No acute fracture or dislocation is appreciated. Impression: 1. Degenerative change and osteoporosis and vascular calcification. 2. Nothing acute is definitely appreciated on 3 view left knee exam. Diagnostic code #2
--- NOTE | 2020-05-12 08:11 | CT ---
CT cervical spine Technique: Multiple axial sections were obtained from above C1 inferiorly to below the T5 level. Reconstructed coronal and sagittal images were obtained. Findings: Mild compression deformities are seen within T4 and T5. I do not see a definite fracture line within these findings. There is moderate disc space narrowing at C4-5 and C5-6 as well as disc space narrowing at C6-7 with vacuum phenomena. Posterior osteophytes are seen at these 3 cervical levels. Posterior spurring causes slight narrowing of the AP canal diameter although no significant central canal stenosis is seen. There is mild to moderate bilateral neural foraminal stenosis noted at C4-5. Fairly severe left-sided neural foraminal stenosis is noted at C5-6 with mild to moderate right-sided neural foraminal stenosis. Mild left-sided neural foraminal stenosis is noted at C6-7. Bony structures are osteopenic. No definite fracture or abnormal subluxation is appreciated. Reconstructed AP views show scoliosis within the spine. Degenerative spurring is noted within the uncovertebral joints at C3-4 and more prominent at C4-5 and C5-6. Degenerative change is also noted within both temporomandibular joints. Diffuse emphysematous change is seen within both lungs. Impression: 1. Several compression deformities within the upper thoracic spine which are most likely old. 2. Degenerative change as noted above. 3. No acute abnormality is appreciated. Diagnostic code #2 I agree with preliminary report from [facility], finalized on 05/12/20, 12:33 AM MEDICATION ADMINISTRATION PROFESSIONAL
== END 2020-05-12 00:36 ==
LOC: JD.ED 21:42
DX: S80.02XA Contusion of left knee, initial encounter (principal); S40.012A Contusion of left shoulder, initial encounter; G93.89 Other specified disorders of brain; E87.6 Hypokalemia; R79.89 Other specified abnormal findings of blood chemistry; E78.00 Pure hypercholesterolemia, unspecified; I10 Essential (primary) hypertension; M19.90 Unspecified osteoarthritis, unspecified site; R56.9 Unspecified convulsions; E03.9 Hypothyroidism, unspecified; Z79.01 Long term (current) use of anticoagulants; Z79.82 Long term (current) use of aspirin; Z79.899 Other long term (current) drug therapy; Z88.2 Allergy status to sulfonamides; Z20.822 Contact with and (suspected) exposure to COVID-19; W19.XXXA Unspecified fall, initial encounter
CPT/HCPCS: 36415; 70450; 72125; 73030; 73564; 80053; 83605; 83735; 84484; 85025; 86140; 93005; 99285; J7030; U0002; 93010